=== PATIENT | male | born 1965 | race Caucasian/White ===

== ENCOUNTER 2018-03-17 13:50 | Emergency (ER) | payer OTHER ==
[~2018-03-17] VITALS: Ht 185.4 cm; Wt 147.4 kg
[2018-03-17 14:16] VITALS: BP 170/93
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
[2018-03-17] MEDS ORDERED: CYCL10TA2 PO (16:05)
[2018-03-17] MEDS ORDERED: DICL50TA4 PO (16:05)
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
== END 2018-03-17 16:14 | disposition home or self-care (01) ==
LOC: ER 13:50
DX: S70.11XA Contusion of right thigh, initial encounter (principal); M25.512 Pain in left shoulder; I10 Essential (primary) hypertension; W20.8XXA Other cause of strike by thrown, projected or falling object, initial encounter; Y93.89 Activity, other specified; Y92.89 Other specified places as the place of occurrence of the external cause; Y99.8 Other external cause status
CPT/HCPCS: 73030; 73502; 73562; 99284